=== PATIENT | female | born 1945 | race Caucasian/White ===

== ENCOUNTER → 2016-10-12 | Outpatient (CLI) | payer MEDICARE, BC ==
[2014-08-13 21:19] VITALS: BP 179/101
[~2016-10-12] MED LIST: ASPIRIN 32325 MG/TAB PO; BENICAR20 MG PO; MULTI VITAMINS1 TAB PO; NORCO 325 MG-7.1 TAB PO
== END ==
LOC: MAMMO 08:51
DX: Z12.31 Encounter for screening mammogram for malignant neoplasm of breast (principal)
CPT/HCPCS: G0202

== ENCOUNTER → 2018-09-18 | Outpatient (CLI) | payer MEDICARE, BC ==
[2014-08-13 21:19] VITALS: BP 179/101
== END ==
LOC: MAMMO 14:57
DX: Z12.31 Encounter for screening mammogram for malignant neoplasm of breast (principal); N64.89 Other specified disorders of breast

== ENCOUNTER → 2018-09-27 | Outpatient (CLI) | payer MEDICARE, BC ==
[2014-08-13 21:19] VITALS: BP 179/101
== END ==
LOC: MAMMO 13:29
DX: N63.0 Unspecified lump in unspecified breast (principal)

== ENCOUNTER 2019-08-24 10:02 | Emergency (ER) | payer MEDICARE, BC ==
[2019-08-24] MEDS ORDERED: LISINOPRIL10 MG PO (10:12)
[2019-08-24] MEDS ORDERED: ADULT ASPIRIN R81 MG PO (10:13)
[2019-08-24 11:38] VITALS: BP 164/98
== END 2019-08-24 11:44 | disposition home or self-care (01) ==
LOC: ED 10:02
DX: S00.03XA Contusion of scalp, initial encounter (principal); I10 Essential (primary) hypertension; Z79.82 Long term (current) use of aspirin; W01.198A Fall on same level from slipping, tripping and stumbling with subsequent striking against other object, initial encounter; Y92.009 Unspecified place in unspecified non-institutional (private) residence as the place of occurrence of the external cause

== ENCOUNTER → 2019-12-17 | Outpatient (CLI) | payer MEDICARE, BC ==
[~2019-12-17] MED LIST changes: +ADULT ASPIRIN R81 MG PO; +LISINOPRIL10 MG PO
== END ==
LOC: MAMMO 12:50
DX: Z12.31 Encounter for screening mammogram for malignant neoplasm of breast (principal); Z85.3 Personal history of malignant neoplasm of breast; Z90.12 Acquired absence of left breast and nipple

== ENCOUNTER → 2021-05-25 | Outpatient (CLI) | payer MEDICARE, BC | LOC: MAMMO 13:45 | DX: Z12.31 Encounter for screening mammogram for malignant neoplasm of breast (principal); Z85.3 Personal history of malignant neoplasm of breast; Z98.890 Other specified postprocedural states; Z92.3 Personal history of irradiation ==